=== PATIENT | male | born 1960 | race African-American/Black ===

== ENCOUNTER 2022-01-25 15:09 | Emergency (ER) | payer OTHER ==
[2022-01-25 17:21] LABS: #Monocytes 0.6 10x3/uL (0.0-1.1); #Neutrophils 10.6 10x3/uL (1.5-8.4); %Basophils 0.3 % (0.0-2.0); %Eosinophils 0.1 % (0.0-6.0); %Lymphocytes 8.6 % (18.0-47.0); %Monocytes 4.9 % (0.0-10.0); %Neutrophils 85.5 % (40.0-75.0); Hemoglobin 12.9 g/dL (13.5-17.5); Mean Corpuscular HGB CONC 32.3 g/dL (32.0-36.0); Mean Corpuscular Volume 80.3 fl (81.2-95.1); Mean Platelet Volume 9.2 fl (7.4-10.4); Platelet Count 209 10x3/uL (150-450); RBC Distribution Width 16.7 % (11.5-14.5); Red Blood Cell (RBC) Count 4.97 10x6/uL (4.32-5.72); White Blood Cell (WBC) Count 12.3 10x3/uL (3.5-10.5)
[2022-01-25 17:28] LABS: SARS-CoV-2 NAA Rapid Test Not Detected (NotDetected)
[2022-01-25 17:31] LABS: ALT (SGPT) 49 U/L (8-55); AST (SGOT) 70 U/L (5-34); Albumin 3.6 g/dL (3.4-4.8); Alkaline Phosphatase 82 U/L (40-110); Anion Gap 18 mmol/L (10-20); BUN (Urea Nitrogen) 18 mg/dL (8.4-25.7); Bilirubin, Total 1.2 mg/dL (0.2-1.2); Calc. Creatinine Clearance 0 mL/min (70-130); Calcium 8.9 mg/dL (7.8-10.44); Carbon Dioxide 28 mmol/L (23-31); Chloride 96 mmol/L (98-107); Estimated GFR 74; Globulin 3.1 g/dL (2.4-3.5); Glucose 98 mg/dL (80-115); Potassium 3.2 mmol/L (3.5-5.1); Protein, Total 6.7 g/dL (5.8-8.1); Sodium 139 mmol/L (136-145)
[2022-01-25 17:54] LABS: CKMB 18.8 ng/mL (0-6.6)
[2022-01-25] MEDS ORDERED: Acetaminophen 500 MG TAB ONE (18:25)
[2022-01-25] MEDS ORDERED: Cefepime 2 GM VIAL ONE (18:25)
[2022-01-25 20:03] LABS: Lactic Acid 1.3 mmol/L (0.5-2.2)
[2022-01-26] MEDS ORDERED: Acetaminophen 325 MG TAB ONE
[2022-01-26] MEDS ORDERED: Cefepime 2 GM VIAL ONE (06:36)
== END 2022-01-26 12:51 | disposition short-term general hospital (02) ==
LOC: CSHERS 15:09
DX: L03.115 Cellulitis of right lower limb (principal); R50.9 Fever, unspecified; I11.0 Hypertensive heart disease with heart failure; I50.9 Heart failure, unspecified; E11.9 Type 2 diabetes mellitus without complications; Z20.822 Contact with and (suspected) exposure to COVID-19; Z79.899 Other long term (current) drug therapy; Z79.84 Long term (current) use of oral hypoglycemic drugs; Z79.82 Long term (current) use of aspirin
CPT/HCPCS: 36415; 80053; 82553; 83605; 84484; 85025; 96361; 96365; 96375; 96376; J0692; J3370; U0002

== ENCOUNTER 2023-07-24 17:57 | Emergency (ER) | payer OTHER ==
[~2023-07-24 17:57] MED LIST: Iopamidol 370 76% 100 ML VIAL ONE
[2023-07-24 18:20] LABS: Actual Bicarbonate (HCO3a) 24.5 mEq/L (22-28); Analyzer IN Cardio CS ER; Base Excess (BEa) -1.2 mEq/L (-2.0 to +3.0); CO2 Tension 44.7 mmHg (35.0-45.0); Calcium, Ionized (arterial) 1.09 mmol/L (1.12-1.30); Carboxyhemoglobin (COHb) 0.1 gm% (0.0-3.0); Hematocrit-ABG 36 % (42.0-52.0); Hemoglobin (Hb) 12.3 g/dL (14.0-18.0); Potassium - ABG Lab 4.17 mmol/L (3.70-5.30); Puncture Site RRA; pH, Arterial 7.356 (7.35-7.45)
[2023-07-24 18:24] LABS: ALV-art Gradient 405.125 mmHg (0-20)
[2023-07-24 18:41] LABS: #Monocytes 0.6 10x3/uL (0.0-1.1); #Neutrophils 2.8 10x3/uL (1.5-8.4); %Basophils 0.4 % (0.0-2.0); %Eosinophils 0.9 % (0.0-6.0); %Lymphocytes 22.8 % (18.0-47.0); %Monocytes 12.6 % (0.0-10.0); Hematocrit 38.2 % (38.8-50.0); Hemoglobin 11.4 g/dL (13.5-17.5); Mean Corpuscular HGB CONC 29.8 g/dL (32.0-36.0); Mean Corpuscular Hemoglobin 24.6 pg (27.0-33.0); Mean Corpuscular Volume 82.3 fl (81.2-95.1); Mean Platelet Volume 10.3 fl (7.4-10.4); Platelet Count 238 10x3/uL (150-450); RBC Distribution Width 15.6 % (11.5-14.5); Red Blood Cell (RBC) Count 4.64 10x6/uL (4.32-5.72); White Blood Cell (WBC) Count 4.5 10x3/uL (3.5-10.5)
[2023-07-24 18:55] LABS: Troponin I 0.053 ng/mL (< 0.028)
[2023-07-24 18:58] LABS: Acetaminophen Less than 10 mcg/mL (10.0-30.0); Alcohol Less than 10.0 mg/dL (Less than 10); Lipase 30 U/L (8-78); Magnesium 1.8 mg/dL (1.6-2.6); Salicylate Less than 8.0 mg/dL (15.0-30.0)
[2023-07-24 19:03] LABS: Phosphorus 3.6 mg/dL (2.3-4.7)
[2023-07-24 19:12] LABS: Bilirubin Neg (Negative); Blood, Urine 10 (Negative); Glucose, Urine (Dipstick) >=1000 mg/dL (Negative); Ketone, Urine Negative (Negative); Leukocyte Negative (Negative); Nitrite Negative (Negative); Protein, Urine (Dipstick) 30 mg/dl (Neg-Trace); Specific Gravity, Urine 1.015 (1.005-1.030); Urobilinogen Normal mg/dL (Less than 2)
[2023-07-24] MEDS ORDERED: Lorazepam 2 MG/ML VIAL ONE (19:13)
[2023-07-24 19:14] LABS: Clarity Clear (Clear)
[2023-07-24] MEDS ORDERED: levETIRAcetam 500 MG (5 mL) VIAL ONE (19:15)
[2023-07-24] MEDS ORDERED: Propofol 1,000 MG/100 ML VIAL IV ONE (19:18)
[2023-07-24 19:20] LABS: Amphetamine Not Detected (NotDetected); Barbiturates Screen Not Detected (NotDetected); Benzodiazepine Screen Not Detected (NotDetected); Cocaine Metabolite Screen Not Detected (NotDetected); Methadone Not Detected (NotDetected); Methamphetamine Not Detected (NotDetected); Opiate Screen Not Detected (NotDetected); Oxycodone Screen Not Detected (NotDetected); Phencyclidine (PCP) Not Detected (NotDetected); THC/Cannabinoid Screen Not Detected (NotDetected); Tricyclic Screen Not Detected (NotDetected)
[2023-07-24 19:27] LABS: INR-International Normal Ratio 1.4; PTT 32.2 sec (22.0-33.0); Prothrombin Time 15.1 sec (9.5-12.1)
[2023-07-24 19:30] LABS: ALT (SGPT) 30 U/L (8-55); AST (SGOT) 21 U/L (5-34); Alkaline Phosphatase 81 U/L (40-110); Anion Gap 13 mmol/L (10-20); BUN (Urea Nitrogen) 17 mg/dL (8.4-25.7); Bilirubin, Total 0.5 mg/dL (0.2-1.2); Calc. Creatinine Clearance 0 mL/min (70-130); Carbon Dioxide 23 mmol/L (23-31); Chloride 106 mmol/L (98-107); Estimated GFR 80; Globulin 3.6 g/dL (2.4-3.5); Potassium 4.4 mmol/L (3.5-5.1); Protein, Total 6.6 g/dL (5.8-8.1); Sodium 138 mmol/L (136-145)
[2023-07-24 19:39] LABS: Critical Call Chemistry ERS.WJM AT 1938; Glucose 426 mg/dL (80-115)
[2023-07-24 19:40] LABS: Bacteria/HPF None Seen HPF (None Seen); CAUTI Indications for Culture Alt mental st,lethar; RBC/HPF None Seen HPF (0-3); Squamous Epithelial None Seen HPF (0-3); WBC/HPF None Seen HPF (0-3)
[2023-07-24 19:41] LABS: Urine Culture Reflex No No
[2023-07-24] MEDS ORDERED: Heparin 25,000 units/D5W 500 ML ONE (20:05)
[2023-07-24 20:19] LABS: SARS-CoV-2 NAA Rapid Test Not Detected (NotDetected)
[2023-07-24 22:19] LABS: Troponin I 0.057 ng/mL (< 0.028)
== END 2023-07-24 22:57 | disposition short-term general hospital (02) ==
LOC: EEVIPCON 17:57 → CSHERS 17:57
DX: J96.90 Respiratory failure, unspecified, unspecified whether with hypoxia or hypercapnia (principal); R56.9 Unspecified convulsions; I11.0 Hypertensive heart disease with heart failure; I50.9 Heart failure, unspecified; E11.9 Type 2 diabetes mellitus without complications; Z79.4 Long term (current) use of insulin; Z79.82 Long term (current) use of aspirin; Z79.899 Other long term (current) drug therapy
CPT/HCPCS: 31500; 36415; 36600; 51702; 70450; 71045; 71275; 74177; 80053; 80306; 80307; 81001; 82010; 82805; 83605; 83690; 83735; 83880; 84100; 84146; 84484; 85025; 85610; 85730; 86140; 86850; 86900; 86901; 93005; 94002; 94760; 96365; 96366; 96367; 99292; J1644; J1953; J2060; J2704; Q9967